=== PATIENT | female | born 1965 | race Caucasian/White ===

== ENCOUNTER 2016-11-25 16:56 | Emergency (ER) | payer SELFPAY ==
[~2016-11-25] VITALS: Ht 162.6 cm; Wt 68.2 kg
[2016-11-25 17:16] LABS: HEMOGLOBIN 14.6 g/dL (11.7-16.4)
[2016-11-25] MEDS ORDERED: ALBU8.5H3 INH (17:23)
[2016-11-25] MEDS ORDERED: ACETAMINOPHEN 325 MG TABLET ONE (17:28)
[2016-11-25 17:29] LABS: BLOOD UREA NITROGEN 8 mg/dL (7-18)
[2016-11-25] MEDS ORDERED: SODIUM CHLORIDE FLUSH 10ML SYR IVF ONE (17:30)
[2016-11-25] MEDS ORDERED: ACETAMINOPHEN 325 MG TABLET PO ONE (17:30)
[2016-11-25 19:08] VITALS: BP 135/81
== END 2016-11-25 19:10 | disposition home or self-care (01) ==
LOC: ED 18:36
DX: J45.31 Mild persistent asthma with (acute) exacerbation (principal); J20.9 Acute bronchitis, unspecified; S22.32XA Fracture of one rib, left side, initial encounter for closed fracture; S27.0XXA Traumatic pneumothorax, initial encounter; E87.1 Hypo-osmolality and hyponatremia; X58.XXXA Exposure to other specified factors, initial encounter; Y93.89 Activity, other specified; Y92.89 Other specified places as the place of occurrence of the external cause; Y99.8 Other external cause status
CPT/HCPCS: 36415; 71010; 71250; 73030; 80048; 82040; 85025; 93005; 99285; J7512

== ENCOUNTER 2016-11-26 12:25 | Emergency (ER) | payer SELFPAY ==
[~2016-11-26] VITALS: Ht 162.6 cm; Wt 67.6 kg
[~2016-11-26 12:25] MED LIST: ALBU8.5H3 INH
[2016-11-26 12:27] VITALS: BP 126/83
== END 2016-11-26 14:13 | disposition home or self-care (01) ==
LOC: ED 13:50
DX: R07.89 Other chest pain (principal); R06.00 Dyspnea, unspecified; J45.909 Unspecified asthma, uncomplicated
CPT/HCPCS: 71010; 93005; 99284